=== PATIENT | male | born 1975 ===

== ENCOUNTER 2025-01-06 11:42 | Outpatient (AMB) | payer OTHER, SELFPAY ==
--- OUTSIDE RECORDS SUMMARY | 2025-01-06 13:03 | XMS_ITS | Clinical Summary ---
Author Organization [address] [place] [address] [place] [phone] Phone Care Team Providers Care Baker Bread Name Role Phone Jessica Maradiaga MD Primary Care Provider [phone] Allergies Active Allergy Reactions Criticality Noted Date Comments Losartan 11/27/2024 Medications amLODIPine (NORVASC) 2.5 mg tablet 11/21/2024 Active hydroCHLOROthia zide 12.5 mg tablet 10/25/2024 Active B complex tablet Take 1 tablet by mouth 1 (one) time each day. Active ascorbic acid (VITAMIN C) 500 mg CR capsule Take 1 capsule (500 mg total) by mouth 1 (one) time each day. Active vitamin D3-levomefolate 125 mcg (5,000 unit)-15 mg capsule,delayed release(DR/EC) Take by mouth. Active levocetirizine (Xyzal) 5 mg tablet Take by mouth 1 (one) time each day in the evening. Active Encounters Date Type Department Care Team Description 11/27/2024 Telephone Gastroenterology - 299 [facility] [address] [facility] [address] [place] [phone] Dimas Sol MD from Last 3 Months Social History Tobacco Use Types Packs/Day Years Used Date Smoking Tobacco: Never Assessed Sex and Gender Information Value Date Recorded Sex Assigned at Not on file Legal Sex Male 1:25 PM EDT Gender Identity Not on file Sexual Orientation Not on file Plan of Treatment Upcoming Encounters Date Type Department Care Team ([facility] st Contact Info) Description 02/13/2025 12:30 PM EDT Appointment [facility] Endoscopy [address] [place] [address] Dimas Sol MD [address] [facility] [address] [place] [address] Health Maintenance Due Date Last Done Comments DTaP,Tdap,and Td Vaccines (1 - Tdap) 12/01/1995 Hepatitis B Vaccines (1 of 3 - 19+ 3-dose series) 12/01/1995 COVID-19 Vaccine (1 - 2023-2 5 season) 2024 Depression Screening 05/22/2024 Cholesterol Screening (Lipid Panel) 11/20/2024 Colorectal Cancer Screening: Colonoscopy 11/20/2024 HIV Screening 11/20/2024 Hepatitis C Screening 11/20/2024 Social Influencers of Health Screening 11/20/2024 Influenza Vaccine (#1) 2025 HIB Vaccines Aged Out No longer eligi ble based on patient's age to complete this topic HPV Vaccines Aged Out No longer eligi ble based on patient's age to complete this topic Hepatitis A Vaccines Aged Out No long er eligible based on patient's age to complete this topic IPV Vaccines Aged Out No longer eligi ble based on patient's age to complete this topic MMR Vaccines Aged Out No longer eligi ble based on patient's age to complete this topic Meningococcal ACWY Vaccine Aged Out N o longer eligible based on patient's age to complete this topic Meningococcal B Vaccine Aged Out No l onger eligible based on patient's age to complete this topic Pneumococcal Vaccine: Pediat rics (0 to 5 Years) and At-Risk Patients (6 to 49 Years) Aged Out No longer eligible b ased on patient's age to complete this topic RSV Immunization Patients Un nivia 20 months Aged Out No longer eligible b ased on patient's age to complete this topic Varicella Vaccines Aged Out No longer eligible based on patient's age to complete this topic Insurance [facility] Care Teams Baker Bread Relationship Specialty Start Date End Date Jessica Maradiaga MD [address] [facility] [place] [address] PCP - General Internal Medicine 11/27/24
--- OUTSIDE RECORDS SUMMARY | 2025-01-06 13:03 | XMS_ITS | Encounter Summary ---
Author Organization [facility] Address [address] [facility] [address] [place] [address] Phone Care Team Providers Care Corporate Lawyer Name Role Phone Jessica Maradiaga MD Primary Care Provider [phone] Encounter Details Date Type Department Care Team (Late st Contact Info) Description 01/03/2024 Ancillary Orders [facility], X-Ray - [address] [address] Cheyenne Pichardo PA [address] [place] [phone] [email or web address] Spondylosis without myelopathy or radiculopathy, lumbar region (Primary Dx) Social History Tobacco Use Types Packs/Day Years Used Date Smoking Tobacco: Former Smokeless Tobacco: Never Comments:teenage years Alcohol Use Standard Drinks/Week Comments Yes 0 (1 standard drink = 0.6 oz pur e alcohol) occasionally Education Answer Date Recorded Are you interested in more education? Not on jewel e 09/16/2022 Are you concerned about learning? Not on file 09/16/2022 No 09/16/2022 No 09/16/2022 Digital Access Answer Date Recorded No 10/15/2022 No 10/15/2022 Reliable internet access at home? Not on file 10/15/2022 Device with a working camera? Not on file Sex and Gender Information Value Date Recorded Sex Assigned at Not on file Legal Sex Male 7:06 PM EST Gender Identity Not on file Sexual Orientation Not on file documented as of this encounter Plan of Treatment Not on file documented as of this encounter Results * XR LUMBOSACRAL SPINE 4 OR MORE VIEWS (01/03/2024 12:25 PM EDT) Anatomical Region Laterality Modality L-spine Computed Radiogr aphy 01/03/2024 4:06 PM EDT Impressions 01/03/2024 4:08 PM EDT Mild lumbar spine degenerative changes. Narrative 01/03/2024 4:08 PM EDT XR LUMBOSACRAL SPINE 4 OR MORE VIEWS Referring clinician's provided indication for this examination in Epic: Pain COMPARISON: None FINDINGS: Transitional lumbosacral anatomy with sacralization of L5 and pseudoarticulation of the bilateral L5 transverse processes. No malalignment. Lumbar vertebral body heights. Disc height loss at L5-S1. Intervertebral disc heights are otherwise maintained. Mild lower lumbar facet arthropathy. The bilateral partes interarticulares are intact. Mild degenerative changes of the SI joints. Partially imaged left pelvic fusion hardware. Procedure Note Edgard Dodge MD - 01/03/2024 XR LUMBOSACRAL SPINE 4 OR MORE VIEWS Referring clinician's provided indication for this examination in Epic:Pain COMPARISON: None FINDINGS: Transitional lumbosacral anatomy with sacralization of L5 andpseudoarticulation of the bilateral L5 transverse processes. Nomalalignment. Lumbar vertebral body heights. Disc height loss at L5-S1.Intervertebral disc heights are otherwise maintained. Mild lower lumbarfacet arthropathy. The bilateral partes interarticulares are intact. Milddegenerative changes of the SI joints. Partially imaged left pelvic fusionhardware. IMPRESSION: Mild lumbar spine degenerative changes. Cheyenne VANG IMG XR SPINE Final Result documented in this encounter Visit Diagnoses Diagnosis Spondylosis without myelopathy or radiculopathy, lumbar region- Primary Spondylosis without myelopathy or radiculopathy, lumbar region documented in this encounter Care Teams Corporate Lawyer Relationship Specialty Start Date End Date Jessica Maradiaga MD [address] [place] [address] (work) [email or web address] PCP - General Internal Medicine 06/28/19 documented as of this encounter Additional Source Comments The information contained in this document represents components of the legal health record. It is not the complete legal health record.[facility]
== END 2025-01-06 11:43 | disposition home or self-care (01) ==
LOC: HO.HMGAL 11:42
PROVIDERS: PCP Internal Medicine; Visit Provider Registered Nurse Emergency
DX: J30.89 Other allergic rhinitis (principal)
CPT/HCPCS: 95117; 95165

== ENCOUNTER 2025-02-05 11:58 | Outpatient (AMB) | payer OTHER, SELFPAY ==
--- OUTSIDE RECORDS SUMMARY | 2025-02-05 15:27 | XMS_ITS | Clinical Summary ---
Author Organization [facility] Address [address] [place] [address] Phone Care Team Providers Care Soccer Player Name Role Phone Jessica Maradiaga MD Primary Care Provider [phone] Allergies No known active allergies Medications hydroCHLOROthiaz collin (HYDRODIURIL) 25 MG tablet Take 25 mg by mouth daily. Active losartan (COZAAR) 100 MG tablet Take 100 mg by mouth daily. Active budesonide-formo terol (SYMBICORT) 80-4.5 mcg/actuation inhaler Inhale 2 puffs into the lungs 2 (two) times a day. Active albuterol 90 mcg/actuation inhaler Inhale 2 puffs into the lungs every 6 (six) hours as needed for wheezing. Active Active Problems Problem Noted Date Diagnosed Date Contact dermatitis 10/04/2024 Immunizations Immunization Administration Dates Next Due COVID-19 (Pre-03/13) Moderna Vaccine, mRNA, PF 0 09/15/2020,08/18/2020 Influenza Quadrivalent MDCK Preservative Free IM 04/13/2021 Influenza Quadrivalent Preservative Free IM 10/0 07/2021,03/03/2020 Influenza Quadrivalent w/ Preservative IM 2017 Tdap 10/29/2020 Social History Tobacco Use Types Packs/Day Years Used Date Smoking Tobacco: Former Smokeless Tobacco: Never Tobacco Cessation:Counseling Given: Not Answered Comments:teenage years Alcohol Use Standard Drinks/Week Comments [...] on file Sexual Orientation Not on file Last Filed Vital Signs Vital Sign Reading Time Taken Comments Blood Pressure 143/80 10/04/2024 2:35 PM EDT Pulse 88 10/04/2024 2:35 PM EDT Temperature 36.9 C (98.4 F) 09/27/2024 5:25 PM EDT Respiratory Rate 16 10/04/2024 2:35 PM EDT Oxygen Saturation 98% 10/04/2024 2:35 PM EDT Inhaled Oxygen Concentration - - Weight 73.5 kg (162 lb) 10/04/2024 2:35 PM EDT Height 180.3 cm (5' 11 ) 10/04/2024 2:35 PM EDT Body Mass Index 22.59 10/04/2024 2:35 PM EDT Plan of Treatment Health Maintenance Due Date Last Done Comments CREATININE LEVEL 1975 LIPID PANEL 1975 POTASSIUM LEVEL 1976 DEPRESSION SCREENING 1988 SMOKING Hx and SMOKELESS TOBACCO SCREENING 1989 HEPATITIS C SCREENING 1994 HIV ONE-TIME SCREENING (18-65 YEARS) 1994 COLOGUARD 2021 COLONOSCOPY 2021 COLORECTAL CANCER SCREENING 2021 FIT TEST 2021 FOBT 2021 SIGMOIDOSCOPY 2021 VIRTUAL COLONOSCOPY 2021 INFLUENZA VACCINE (#1) 2024 2, 04/13/2021, 03/03/2020, Additional history exists COVID-19 VACCINE ( season) 2025 02/21/2022, 09/15/2020, 08/18/2020 Adult Td,Tdap Booster 10/29/2030 10/29/2020 HEPATITIS A VACCINES Aged Out No long er eligible based on patient's age to complete this topic HIB VACCINES Aged Out No longer eligi ble based on patient's age to complete this topic MENINGOCOCCAL VACCINES (ACWY) Aged Out No longer eligible based on patient's age to complete this topic MENINGOCOCCAL VACCINES (B) Aged Out N o longer eligible based on patient's age to complete this topic PNEUMOCOCCAL VACCINES (0-49 years) Aged Out No longer eligible based on patient's age to complete this topic Medical Devices Not on file Insurance [facility] [address] [place], [place] [id number] [facility] [address] [place], [place] [id number] Care Teams Soccer Player Relationship Specialty Start Date End Date Jessica Maradiaga MD [address] [place] [address] [email or web address] PCP - General Internal Medicine 06/28/19 Additional Source Comments The information contained in this document represents components of the legal health record. It is not the complete legal health record.[facility]
== END 2025-02-05 11:59 | disposition home or self-care (01) ==
LOC: HO.HMGAL 11:58
PROVIDERS: PCP Internal Medicine; Visit Provider Registered Nurse Emergency
DX: J30.89 Other allergic rhinitis (principal)
CPT/HCPCS: 95117; 95165

== ENCOUNTER 2025-03-05 12:04 | Outpatient (AMB) | payer OTHER, SELFPAY ==
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
--- OUTSIDE RECORDS SUMMARY | 2025-03-05 15:16 | XMS_ITS | Encounter Summary ---
Author Organization [facility] Address [address] [facility] [address] [place] [address] Phone Care Team Providers Care Web Site Designer Name Role Phone Jessica Maradiaga MD Primary Care Provider [phone] Encounter Details Date Type Department Care Team (Late st Contact Info) Description 01/03/2024 Ancillary Orders [facility], X-Ray - [address] [address] Cheyenne Pichardo PA [address] [place] [phone] [email or web address] Spondylosis without myelopathy or radiculopathy, lumbar region [...] region documented in this encounter Care Teams Web Site Designer Relationship Specialty Start Date End Date Jessica Maradiaga MD [address] [place] [address] (work) [email or web address] PCP - General Internal Medicine 06/28/19 documented as of this encounter Additional Source Comments The information contained in this document represents components of the legal health record. It is not the complete legal health record.[facility]
--- OUTSIDE RECORDS SUMMARY | 2025-03-05 15:16 | XMS_ITS | Clinical Summary ---
Author Organization [facility] Address [address] [place] [phone] Phone Care Team Providers Care Caisson Worker Name Role Phone Jessica Maradiaga MD Primary Care Provider [phone] Allergies No known active allergies Medications hydroCHLOROthiaz [...] topic Medical Devices Not on file [place] [address] [place] [address] [place] [address] [place] [address] [place] [address] [place] [place] [address] [place] [address] [place] [address] [place] [address] [place] [address] Care Teams Caisson Worker Relationship Specialty Start Date End Date Jessica Maradiaga MD [address] [place] [address] [email or web address] PCP - General Internal Medicine 06/28/19 Additional Source Comments The information contained in this document represents components of the legal health record. It is not the complete legal health record.[facility]
--- OUTSIDE RECORDS SUMMARY | 2025-03-05 15:16 | XMS_ITS | Encounter Summary ---
Author Organization [facility] Address [address] [place] [address] Care Team Providers Care Director Search Name Role Phone Jessica Maradiaga MD Primary Care Provider [phone] Encounter Details Date Type Department Care Team (Late st Contact Info) Description 02/17/2025 Results Follow-Up Gastroenterology - [address] [place] [id number] Antonella Johnson MA Social History Tobacco Use Types Packs/Day Years Used Date Smoking Tobacco: Never Smokeless Tobacco: Never Alcohol Use Standard Drinks/Week Comments Not Asked [...] on file documented as of this encounter Visit Diagnoses Not on filedocumented in this encounter Care Teams Director Search Relationship Specialty Start Date End Date Jessica Maradiaga MD [address] [facility] [address] [place] [address] PCP - General Internal Medicine 11/27/24 documented as of this encounter
== END 2025-03-05 12:04 | disposition home or self-care (01) ==
LOC: HO.HMGAL 12:04
PROVIDERS: PCP Internal Medicine; Visit Provider Registered Nurse Emergency
DX: J30.89 Other allergic rhinitis (principal)
CPT/HCPCS: 95117; 95165